=== PATIENT | female | born 1970 | race Caucasian/White ===

== ENCOUNTER 2019-11-07 13:23 | Emergency (ER) | payer MEDICAID ==
[~2019-11-07] VITALS: Ht 157.5 cm; Wt 77.1 kg
[2019-11-07 15:24] VITALS: BP_SYST 141
[2019-11-07] MEDS ORDERED: KETOROLAC TROMETHAMINE 60 MG/2 ML VIAL IM ONE (18:00)
[2019-11-07 19:13] VITALS: BP_SYST 133
== END 2019-11-07 19:13 | disposition home or self-care (01) ==
LOC: SED 13:23
DX: G62.9 Polyneuropathy, unspecified (principal); I10 Essential (primary) hypertension; E11.9 Type 2 diabetes mellitus without complications
CPT/HCPCS: 96372; 99283; J1885

== ENCOUNTER 2020-05-16 15:52 | Emergency (ER) | payer MEDICAID ==
[~2020-05-16] VITALS: Ht 157.5 cm; Wt 72.6 kg
[2020-05-16 16:10] VITALS: BP_SYST 138
[2020-05-16 17:18] VITALS: BP_SYST 138
== END 2020-05-16 17:18 | disposition home or self-care (01) ==
LOC: SED 15:52
DX: K02.9 Dental caries, unspecified (principal); I10 Essential (primary) hypertension; E11.9 Type 2 diabetes mellitus without complications
CPT/HCPCS: 99283

== ENCOUNTER 2020-10-04 09:32 | Emergency (ER) | payer MEDICAID ==
[~2020-10-04] VITALS: Ht 157.5 cm; Wt 80.7 kg
[2020-10-04 09:48] VITALS: BP_SYST 147
[2020-10-04] MEDS ORDERED: NACL 0.9% 1,000 ML IV ONE (10:00)
[2020-10-04] MEDS ORDERED: PROCHLORPERAZINE EDISYLATE 10 MG/2 ML VIAL IVP ONE (10:15)
[2020-10-04] MEDS ORDERED: DIPHENHYDRAMINE INJ 50 MG/ML VIAL IVP ONE (10:15)
[2020-10-04] MEDS ORDERED: HYDROcodone/ACETAMIN 5-325 MG TAB (NORCO/ VICODIN) PO ONE (10:15)
[2020-10-04] MEDS ORDERED: MAGNESIUM SULFATE 50 ML IV ONE (10:30)
[2020-10-04 10:32] LABS: BASOPHILS % (AUTO) 0.4 % (0.0-2.0); EOSINOPHILS % (AUTO) 0.1 % (0.0-4.0); HEMATOCRIT 39.8 % (36-48); HEMOGLOBIN 13.5 g/dL (12.0-16.0); LYMPHOCYTES # (AUTO) 2.6 K/uL (1.0-5.5); LYMPHOCYTES % (AUTO) 24.1 % (20.5-51.5); MEAN CORPUSCULAR HEMOGLOBIN 30 pg (27-31); MEAN CORPUSCULAR HGB CONC 34 % (32-36); MEAN CORPUSCULAR VOLUME 87 fL (79.0-98.0); MONOCYTES # (AUTO) 0.3 K/uL (0.0-1.0); MONOCYTES % (AUTO) 3.1 % (1.7-9.3); NEUTROPHILS # (AUTO) 7.7 K/uL (1.8-7.7); NEUTROPHILS % (AUTO) 72.3 % (40.0-70.0); PLATELET COUNT (AUTO) 433 K/uL (130-430); RED BLOOD CELL COUNT(AUTO) 4.58 MIL/uL (4.2-6.2); WHITE BLOOD COUNT (AUTO) 10.7 K/uL (4.8-10.8)
[2020-10-04 10:52] LABS: ANION GAP 14 (5-15); CALCIUM 9.2 mg/dL (8.4-11.0); CHLORIDE 99 mmol/L (98-107); CREATININE 0.87 mg/dL (0.55-1.30); GLUCOSE 351 mg/dL (70-99); POTASSIUM 3.9 mmol/L (3.5-5.1); SODIUM SERUM 137 mmol/L (136-145); UREA NITROGEN, BLOOD 13 mg/dL (8-21)
[2020-10-04 10:54] LABS: GFR AFRICAN AMERICAN 89 mL/min (>90)
[2020-10-04 10:55] LABS: PROTHROMBIN TIME 9.9 SECS (9.5-12.5)
[2020-10-04 11:01] LABS: ALANINE AMINOTRANSFERASE 34 U/L (12-78); ALBUMIN 3.4 g/dL (3.4-4.8); ASPARTATE AMINOTRANSFERASE 27 U/L (10-37); BILIRUBIN,DIRECT 0.1 mg/dL (0.0-0.3); LIPASE 56 U/L (73-393); TOTAL BILIRUBIN 0.4 mg/dL (0.0-1.0)
[2020-10-04 13:07] VITALS: BP_SYST 147
== END 2020-10-04 13:08 | disposition home or self-care (01) ==
LOC: SED 09:32
DX: R51.9 Headache, unspecified (principal); R11.2 Nausea with vomiting, unspecified; I10 Essential (primary) hypertension; E11.9 Type 2 diabetes mellitus without complications
CPT/HCPCS: 36415; 70450; 70496; 76376; 80048; 80076; 83690; 84484; 85025; 85610; 93005; 96361; 96365; 96375; 99285; J0780; J1200; J3475; J7030; Q9967

== ENCOUNTER 2021-04-30 09:29 | Emergency (ER) | payer MEDICAID ==
[~2021-04-30] VITALS: Ht 157.5 cm; Wt 79.4 kg
[2021-04-30 09:47] VITALS: BP_SYST 153
--- NOTE | 2021-04-30 10:00 | NUR ---
Pt presents to ER with headache, pt c/o nausea, Hx of diabetes, BS 241, skin pink and warm, cap refill <3, VSS, respirations even and unlabored.
[2021-04-30 10:46] LABS: BASOPHILS % (AUTO) 0.4 % (0.0-2.0); EOSINOPHILS # (AUTO) 0.1 K/uL (0.0-0.4); EOSINOPHILS % (AUTO) 0.6 % (0.0-4.0); HEMATOCRIT 41.5 % (36-48); HEMOGLOBIN 14.1 g/dL (12.0-16.0); LYMPHOCYTES # (AUTO) 3.9 K/uL (1.0-5.5); MEAN CORPUSCULAR HEMOGLOBIN 28 pg (27-31); MEAN CORPUSCULAR HGB CONC 34 % (32-36); MEAN CORPUSCULAR VOLUME 84 fL (79.0-98.0); MONOCYTES # (AUTO) 0.4 K/uL (0.0-1.0); MONOCYTES % (AUTO) 4.2 % (1.7-9.3); NEUTROPHILS # (AUTO) 5.6 K/uL (1.8-7.7); NEUTROPHILS % (AUTO) 55.8 % (40.0-70.0); PLATELET COUNT (AUTO) 432 K/uL (130-430); RED BLOOD CELL COUNT(AUTO) 4.96 MIL/uL (4.2-6.2); RED CELL DISTRIBUTION WIDTH 14.8 % (9.0-15.0); WHITE BLOOD COUNT (AUTO) 10.1 K/uL (4.8-10.8)
[2021-04-30 11:03] LABS: CALCIUM 10.1 mg/dL (8.4-11.0); CREATININE 0.68 mg/dL (0.55-1.30); POTASSIUM 3.4 mmol/L (3.5-5.1)
--- NOTE | 2021-04-30 11:05 | NUR ---
Dr Julien evaluating patient in the triage room
[2021-04-30 11:08] LABS: ALBUMIN 3.5 g/dL (3.4-4.8); TOTAL BILIRUBIN 0.3 mg/dL (0.0-1.0)
[2021-04-30] MEDS ORDERED: PROCHLORPERAZINE EDISYLATE 10 MG/2 ML VIAL IM ONE (11:45)
[2021-04-30] MEDS ORDERED: DIPHENHYDRAMINE HCL 50 MG CAPSULE PO ONE (11:45)
[2021-04-30] MEDS ORDERED: KETOROLAC TROMETHAMINE 30 MG VIAL IM ONE (11:45)
[2021-04-30] MEDS ORDERED: IBUP-1969 PO (12:50)
[2021-04-30] MEDS ORDERED: DIPH25CA83 PO (12:50)
[2021-04-30] MEDS ORDERED: PROC10TA13 PO (12:50)
--- NOTE | 2021-04-30 13:00 | NUR ---
Patient given written and verbal discharge instructions and verbalizes understanding. ER MD discussed with patient the results and treatment provided. Patient in stable condition. ID arm band removed. Rx of Benadryl,compazine and Ibuprofen given. Patient educated on pain management and to follow up with PMD. Pain Scale 2/10 . Opportunity for questions provided and answered. Medication side effect fact sheet provided.
[2021-04-30 15:00] VITALS: BP_SYST 145
== END 2021-04-30 15:00 | disposition home or self-care (01) ==
LOC: SED 09:29
DX: R51.9 Headache, unspecified (principal); I10 Essential (primary) hypertension; E11.65 Type 2 diabetes mellitus with hyperglycemia
CPT/HCPCS: 36415; 80053; 82962; 85025; 96372; 99284; J0780; J1885; Q0163

== ENCOUNTER 2021-07-05 13:40 | Emergency (ER) | payer MEDICAID ==
[~2021-07-05] VITALS: Ht 157.5 cm; Wt 77.1 kg
[~2021-07-05 13:40] MED LIST: DIPH25CA83 PO; IBUP-1969 PO; PROC10TA13 PO
[2021-07-05 13:50] VITALS: BP_SYST 143
--- NOTE | 2021-07-05 13:50 | NUR ---
PT TRIAGED AND IN WR FOR AVAILABLE BED IN MAIN ED
--- NOTE | 2021-07-05 13:55 | NUR ---
PT BIB SON FROM HOME, SLIP AND FALL ON WET TILE FLOOR, LANDED ON RIGHT WRIST AND TWISTED RIGHT ANKLE AROUND 0730 THIS AM. PAINFUL BUT PT IS AMBULATORY, AAOX4, VSS
--- NOTE | 2021-07-05 14:20 | NUR ---
ER DR. ALVAREZ AT THE BEDSIDE EXAMINING PT
[2021-07-05] MEDS ORDERED: NAPR-1172 PO (14:46)
[2021-07-05 15:00] VITALS: BP_SYST 141
--- NOTE | 2021-07-05 15:00 | NUR ---
Patient given written and verbal discharge instructions and verbalizes understanding. ER MD discussed with patient the results and treatment provided. Patient in stable condition. ID arm band removed. Rx of NAPROSYN given. Patient educated on pain management and to follow up with PMD. Pain Scale 0/10. Opportunity for questions provided and answered. Medication side effect fact sheet provided.
== END 2021-07-05 15:00 | disposition home or self-care (01) ==
LOC: SED 13:40
DX: S93.401A Sprain of unspecified ligament of right ankle, initial encounter (principal); S63.501A Unspecified sprain of right wrist, initial encounter; I10 Essential (primary) hypertension; E11.9 Type 2 diabetes mellitus without complications; J44.9 Chronic obstructive pulmonary disease, unspecified; K21.9 Gastro-esophageal reflux disease without esophagitis; F03.90 Unspecified dementia, unspecified severity, without behavioral disturbance, psychotic disturbance, mood disturbance, and anxiety; Z79.899 Other long term (current) drug therapy; Z95.0 Presence of cardiac pacemaker; W18.39XA Other fall on same level, initial encounter; Y93.89 Activity, other specified; Y92.89 Other specified places as the place of occurrence of the external cause; Y99.8 Other external cause status
CPT/HCPCS: 99284

== ENCOUNTER 2022-09-26 11:56 | Emergency (ER) | payer MEDICAID ==
[~2022-09-26] VITALS: Ht 157.5 cm; Wt 72.6 kg
[~2022-09-26 11:56] MED LIST changes: +NAPR-1172 PO
[2022-09-26 12:00] VITALS: BP_SYST 167
[2022-09-26] MEDS ORDERED: KETOROLAC TROMETHAMINE 60 MG/2 ML VIAL IM ONE (12:15)
[2022-09-26] MEDS ORDERED: HYDROcodone/ACETAMIN 10-325 MG TAB PO ONE (12:15)
[2022-09-26 12:27] LABS: ERYTHROCYTE SEDIMENTATION RATE 46 MM/HR (0-20)
[2022-09-26 12:30] LABS: BASOPHILS % (AUTO) 0.3 % (0.0-2.0); EOSINOPHILS # (AUTO) 0.1 K/uL (0.0-0.4); EOSINOPHILS % (AUTO) 1.3 % (0.0-4.0); HEMATOCRIT 37.9 % (36-48); HEMOGLOBIN 12.5 g/dL (12.0-16.0); LYMPHOCYTES # (AUTO) 3.1 K/uL (1.0-5.5); LYMPHOCYTES % (AUTO) 40.9 % (20.5-51.5); MEAN CORPUSCULAR HEMOGLOBIN 28 pg (27-31); MEAN CORPUSCULAR HGB CONC 33 % (32-36); MEAN CORPUSCULAR VOLUME 86 fL (79.0-98.0); MONOCYTES # (AUTO) 0.4 K/uL (0.0-1.0); MONOCYTES % (AUTO) 4.6 % (1.7-9.3); NEUTROPHILS % (AUTO) 52.9 % (40.0-70.0); PLATELET COUNT (AUTO) 434 K/uL (130-430); RED BLOOD CELL COUNT(AUTO) 4.39 MIL/uL (4.2-6.2); RED CELL DISTRIBUTION WIDTH 14.7 % (9.0-15.0); WHITE BLOOD COUNT (AUTO) 7.6 K/uL (4.8-10.8)
[2022-09-26 12:34] LABS: CALCIUM 8.7 mg/dL (8.4-11.0); CREATININE 0.96 mg/dL (0.55-1.30)
[2022-09-26 12:39] LABS: ALBUMIN 3.3 g/dL (3.4-4.8); C-REACTIVE PROTEIN QUANT 0.8 mg/dL (0-0.5); TOTAL BILIRUBIN 0.5 mg/dL (0.0-1.0)
[2022-09-26] MEDS ORDERED: IBUP-1969 PO (13:49)
[2022-09-26] MEDS ORDERED: TRAM50TA2 PO (13:49)
[2022-09-26 14:07] VITALS: BP_SYST 145
[2022-09-26 14:24] LABS: BILIRUBIN,URINE NEGATIVE (NEGATIVE); BLOOD, URINE NEGATIVE (NEGATIVE); COLOR,URINE YELLOW (YELLOW); GLUCOSE,URINE TRACE (NEGATIVE); KETONES,URINE NEGATIVE (NEGATIVE); LEUKOCYTE ESTERASE ,URINE NEGATIVE (NEGATIVE); NITRITE, URINE NEGATIVE (NEGATIVE); PROTEIN URINE TRACE (NEGATIVE); UROBILINOGEN,URINE 0.2 (0.2-1.0)
[2022-09-26 14:27] LABS: CLARITY/URINE CLEAR (CLEAR)
== END 2022-09-26 14:07 | disposition home or self-care (01) ==
LOC: SED 11:56
DX: E11.40 Type 2 diabetes mellitus with diabetic neuropathy, unspecified (principal); I10 Essential (primary) hypertension; M79.662 Pain in left lower leg; Z79.899 Other long term (current) drug therapy
CPT/HCPCS: 99285; 93971; 80053; 82962; 84550; 85025; 85651; 86140; 36415; 73590; 96372; 81003; J1885

== ENCOUNTER 2022-10-02 18:04 | Emergency (ER) | payer MEDICAID ==
[~2022-10-02] VITALS: Ht 157.5 cm; Wt 77.1 kg
[~2022-10-02 18:04] MED LIST changes: +TRAM50TA2 PO
[2022-10-02 18:28] VITALS: BP_SYST 165
--- NOTE | 2022-10-02 18:35 | NUR ---
Patient triaged and placed in waiting room. VSS and patient appears in no acute distress at this time. Accompanied by SELF, awaiting available bed, and MD notified of need for MSE.
--- NOTE | 2022-10-02 19:45 | NUR ---
Patient to ER bed hb1 to gown for evaluation. Side rails up. Report given to NOEMI CHU.
--- NOTE | 2022-10-02 19:53 | NUR ---
Dr. Marks with patient in [facility] for MSE.
[2022-10-02] MEDS ORDERED: KETOROLAC TROMETHAMINE 60 MG/2 ML VIAL IM ONE (20:00)
[2022-10-02] MEDS ORDERED: MORPHINE 4 MG INJ. 4 MG/ML VIAL IM ONE (20:00)
[2022-10-02 21:18] VITALS: BP_SYST 165
--- NOTE | 2022-10-02 21:20 | NUR ---
Patient given written and verbal discharge instructions and verbalizes understanding. ER MD discussed with patient the results and treatment provided. Patient in stable condition. ID arm band removed. Patient educated on pERIPHERAL NEUROPATHY and to follow up with PMD. Pain Scale . Opportunity for questions provided and answered. Medication side effect fact sheet provided.
== END 2022-10-02 21:18 | disposition home or self-care (01) ==
LOC: SED 18:04
DX: G62.9 Polyneuropathy, unspecified (principal); I10 Essential (primary) hypertension; E11.9 Type 2 diabetes mellitus without complications; M79.662 Pain in left lower leg; Z79.899 Other long term (current) drug therapy
CPT/HCPCS: 99284; 96372; J1885; J2270